=== PATIENT | female | born 1970 | race Caucasian/White ===

== ENCOUNTER 2018-08-12 05:32 | Inpatient (IN) | payer BC, OTHER ==
[2018-08-09 12:11] VITALS: BMI 39.0
[2018-08-12] MEDS ORDERED: PHENAZOPYRIDINE HCL 100 MG TABLET (FP) PO ONE (07:14)
--- NOTE | 2018-08-12 07:18 | HP ---
History & Physical Update - History History: No Change - Physical Physical: No Change - Assessment Assessment: No Change - Plan Plan: No Change
[2018-08-12] MEDS ORDERED: MIDAZOLAM HCL 2 MG/2 ML SINGLE DOSE VIAL ONE (07:54)
[2018-08-12] MEDS ORDERED: ROCURONIUM BROMIDE 50 MG/5 ML SYRINGE ONE ×2 (07:54→07:56)
[2018-08-12] MEDS ORDERED: ceFAZolin SODIUM 1 GM VIAL ONE (07:54)
[2018-08-12] MEDS ORDERED: LIDOCAINE HCL/PF 2% SDV 5ML VIAL ONE (07:54)
[2018-08-12] MEDS ORDERED: PROPOFOL 20 ML ONE ×3 (07:54)
[2018-08-12] MEDS ORDERED: fentaNYL CITRATE 250 MCG/5 ML VIAL ONE (07:54)
[2018-08-12] MEDS ORDERED: VECURONIUM BROMIDE 10 MG VIAL ONE ×2 (07:59→09:15)
[2018-08-12] MEDS ORDERED: BUPIVACAINE HCL/PF 0.5% (5MG/ML) 10 ML VIAL ONE (08:09)
--- NOTE | 2018-08-12 08:15 | HP ---
Satellite PMH - Chief Complaint Chief Complaint: Pelvic pain. Didelphus Uterus. Adenomyosis. Obesity. Leiomyomatous uterus History of Present Illness: 48 yo P2 s cesrean section with twins and left salpingetomy with c/o heavy bleeding, irregular bleeding and pain due to endometriosis and adenomyomatous didelphus uterus. Pt with Hx of depo provera x years with no relief and desires hysterectomy History Source: Patient Limitations to Obtaining History: No Limitations - Past Medical History Allergies/Adverse Reactions: Allergies Allergy/AdvReac Type Severity Reaction Status Date / Time Penicillins Allergy Severe Rash Verified 08/12/18 06:48 Reproductive: Yes: Endometriosis ...LMP Comment: depo in april (8-10 days in june) ...: No - Current Medications Current Medications: Home Medications Medication Instructions Recorded Medroxyprogesterone Acet 150 mg IM UTDICT 01/06/13 [Depo-Provera] Cetirizine HCl [Zyrtec -] 10 mg PO DAILY 08/09/18 Naproxen Sodium [Aleve] 220 mg PO PRN PRN 08/09/18 Lisinopril [Prinivil] 10 mg PO HS 08/12/18 Oxycodone HCl/Acetaminophen 1 - 2 tab PO Q6H #20 tab MDD 6 08/14/18 [Percocet 5-325 mg Tablet] Satellite Physical Exam - Physical Examination Vital Signs: Vital Signs Period Temp Pulse Resp BP Sys/Haque Pulse Ox Last 24 Hr 98.4 F 69 18 132/73 98 General Appearance: Well Nourished, Well Developed, Alert & Oriented x3, Obese Lung: Clear to auscultation Heart: Regular rate & rhythm Breasts: Soft, Non-Tender Abdomen: Soft, No tenderness Extremities: No edema, No tenderness/swelling Pelvic Exam: Within normal limits External Genitalia, Within normal limits Vagina, Within normal limits Cervix, Within normal limits [place], Other Uterus (didelphus) Neurological: Intact, Alert, Oriented Satellite Impression/Plan - Impression/Plan Impression: Adenomyosis. Leiomyomatous Uterus. abnormal uterine bleeding. Pelvic Pain. Menorrhagia. Metrorrhagia. Endometriosis Operative Procedure: RObotic Laparoscopic Hystereectomy. bilateral salpingectomy. possible laparotomy Date to be Performed: 08/12/18
[2018-08-12] MEDS ORDERED: ceFAZolin SODIUM 1 GM VIAL IVPB ONE (08:41)
[2018-08-12] MEDS ORDERED: DEXAMETHASONE SOD PHOSPHATE 4 MG/1 ML VIAL ONE (09:05)
[2018-08-12] MEDS ORDERED: GLYCOPYRROLATE 0.2 MG/1 ML VIAL ONE (10:19)
[2018-08-12] MEDS ORDERED: NEOSTIGMINE METHYLSULFATE 0.5 MG/ML - 10 ML MDV ONE (10:20)
[2018-08-12] MEDS ORDERED: BUPIVACAINE HCL/PF (5 MG/ML) 30 ML VIAL IJ ONE (10:40)
[2018-08-12] MEDS ORDERED: KETOROLAC TROMETHAMINE 30 MG/1 ML VIAL ONE (10:40)
[2018-08-12] MEDS ORDERED: ONDANSETRON 4 MG/2 ML VIAL IVPUSH PRN ×2 (11:00→11:01)
[2018-08-12] MEDS ORDERED: HYDROmorphone HCl 2 MG/ML VIAL IVPUSH PRN (11:00)
[2018-08-12] MEDS ORDERED: IBUPROFEN 800 MG/8 ML IJ IVPB PRN (11:01)
[2018-08-12] MEDS ORDERED: oxyCODONE HCL 5 MG TABLET PO PRN (11:01)
[2018-08-12] MEDS ORDERED: BISACODYL 5 MG TABLET.DR (FP) PO PRN (11:01)
[2018-08-12] MEDS ORDERED: DOCUSATE SODIUM 100 MG CAPSULE (FP) PO PRN (11:01)
--- NOTE | 2018-08-12 11:07 | OP ---
Operative Note - Note: Operative Date: 08/12/18 Pre-Operative Diagnosis: Fibroid uterus Operation: Robotic total hysterectomy and Right salpingectomy Post-Operative Diagnosis: Same as Pre-op Surgeon: Mehnaz Kessler Manager Sales And Marketing: Davie Ibanez Anesthesiologist/[employer] PROFESSIONAL: Miracle Gomes Anesthesia: General Specimens Removed: Uterus, Rt fallopian tube Estimated Blood Loss (mls): 25 Operative Report Dictated: Yes
--- NOTE | 2018-08-12 11:08 | SURG ---
Surgery Director Employee Safety And Health Note Director Employee Safety And Health: Davie Ibanez PA-C Date of Service: 08/12/18 Diagnosis: Fibroid uterus Procedure: robotic total hysterectomy and Rt salpingectomy I was present for the entirety of the operative procedure. For further detail, please refer to operative report. Visit type - Case Type Case Type: Scheduled - Emergency Emergency Visit: No - New patient This patient is new to me today: Yes Date on this admission: 08/12/18 - Critical Care Critical Care patient: No
[2018-08-12] MEDS ORDERED: HYDROmorphone *PCA* 10MG/50ML DISP.SYRIN PCA SCH ×2 (11:15→14:11)
[2018-08-12] MEDS: LACTATED RINGERS SOLUTION 1,000 ML IV SCH ×2 (11:30→18:25)
--- NOTE | 2018-08-12 14:41 | OP ---
DATE OF OPERATION: 08/12/2018 PREOPERATIVE DIAGNOSIS: Leiomyomatous uterus, pelvic pain, metromenorrhagia, menorrhagia. POSTOPERATIVE DIAGNOSIS: Leiomyomatous uterus, pelvic pain, metromenorrhagia, menorrhagia, endometriosis. OPERATION: Laparoscopic robotic total hysterectomy and right salpingectomy. SURGEON: Hugh Jeffers MD NEUROLOGIST: MOLINA Redmond ANESTHESIOLOGIST: Miracle Gomes MD ANESTHESIA: General. FINDINGS: Didelphys uterus with 2 cervixes noted and a right tube which was normal. Endometriosis seen in the cul-de-sac. PROCEDURE: The patient was taken to the operating room, placed in dorsal lithotomy position, prepped and draped in the usual sterile fashion. A time-out was performed in accordance with hospital regulation. Hollingsworth catheter was inserted into the bladder. Attention was then drawn to the umbilicus, where an 8-mm umbilical incision was made. Veress needle was inserted into the cavity. Approximately 3 to 4 L of CO2 was insufflated in the cavity. Veress needle was then removed and an 8-mm trocar was then inserted. Laparoscope and camera was attached. Two trocars were inserted on the right, 1 in the upper abdomen and 1 parallel to the umbilical incision, and 2 other incisions were parallel to the umbilical incision on the left, all inserted with 8-mm incisions after scalpel had been used and trocars were inserted under direct visualization. Trocars were placed correctly, and the da Sahil robot was then side docked to the patient. Trocars were then inserted and instruments then inserted. Tenaculum was placed in 4, Endo Maci were placed in 3, vessel sealer was placed in 1, and camera was in 2. After trocars had been placed, arms were secured and instruments placed. Attention was then drawn to the console, where tenaculum was then used to elevate the uterus. Uteroovarian ligament was identified and clamped and cut. Round ligament identified and clamped and cut. Uterine artery on the left side was clamped and cut. Vesicouterine reflection was then entered and bladder was bluntly dissected out of the operative field. The same procedure was then repeated on the right side. Ureters were identified in the beginning of the case and found to have peristalsis. The bladder was bluntly dissected out of the operative field. The same procedure was repeated on the right side. The uteroovarian ligament was identified and clamped and cut. Uterine artery was identified, clamped and cut. Cardinal ligament was identified and clamped and cut down to the level of the cervix. Vagina was then entered with the Endo Maci and cutting of the vagina was then done. Septum was seen in the vagina. Two cervixes were noted, and upon removal, patient had septum didelphys vagina as well as septum that split the cervixes. Both uteruses and cervixes were removed. Tube was bilaterally grasped on the right and coagulation and cutting was then performed and a right salpingectomy was then done and removal of the tube. V-sam suture was then entered into the abdomen and robot was then used to close the vagina in a continuous fashion. Ureters were identified and found to have peristalsis and the needle was then removed out of the trocar. Hemostasis had been achieved. No bleeding was noted. All instruments were then removed. Incisions were then closed using 4-0 Biosyn in subcuticular fashion. Wound was washed and dressed. The patient tolerated procedure well. Estimated blood loss was 25 mL. HUGH JEFFERS M.D. [id number]
[2018-08-12 17:40] LABS: HEMATOCRIT 35.5 % (32.4-45.2); HEMOGLOBIN 12.5 GM/dL (10.7-15.3); MCHC 35.2 g/dl (32.0-36.0); MEAN PLT VOLUME 7.2 fl (7.5-11.1); PLATELET COUNT 155 K/MM3 (134-434); RDW 12.9 % (11.6-15.6); WHITE BLOOD COUNT 5.6 K/mm3 (4.0-10.0)
[2018-08-12] MEDS ORDERED: ceFAZolin 2 GRAM PREMIX BAG IVPB SCH (18:00)
[2018-08-12 18:09] LABS: BLOOD UREA NITROGEN 20.8 mg/dL (7-18); CALCIUM 8.4 mg/dL (8.5-10.1); CREATININE 1.2 mg/dL (0.55-1.3); POTASSIUM 4.6 mmol/L (3.5-5.1)
[2018-08-12] MEDS: CEFAZOLIN 2 GM/D5W 2 GM/50 ML ML IVPB SCH (18:25)
[2018-08-13] MEDS: CEFAZOLIN 2 GM/D5W 2 GM/50 ML ML IVPB SCH ×2 (01:49→09:21)
[2018-08-13 07:44] LABS: HEMATOCRIT 32.2 % (32.4-45.2); HEMOGLOBIN 11.4 GM/dL (10.7-15.3); MCH 32.2 pg (25.7-33.7); MCHC 35.5 g/dl (32.0-36.0); MEAN CELL VOLUME 90.7 fl (80-96); MEAN PLT VOLUME 7.6 fl (7.5-11.1); PLATELET COUNT 144 K/MM3 (134-434); RBC 3.55 M/mm3 (3.60-5.2); RDW 12.6 % (11.6-15.6); WHITE BLOOD COUNT 5.1 K/mm3 (4.0-10.0)
--- NOTE | 2018-08-13 08:07 | SPA.POSTOP ---
- POST-OP NOTE POD #1 s/p Robotic hysterectomy No acute events since surgical procedure per RN notes. Patient resting comfortably. Pt complaining of some mild abd pain. Denies n/v/f/c, CP or SOB. Last Vital Signs Temp Pulse Resp BP Pulse Ox 97.8 F 70 18 133/74 99 08/13/18 06:00 08/13/18 06:00 08/13/18 06:00 08/13/18 06:00 08/12/18 21:00 Physical Exam General: No acute distress. Pulm: breathing comfortably Cor: Regular rhythm Abd: Soft. Mild lower abd tenderness, No distention, incisions clean with no erythema or discharge. LE: Soft, non-tender bilat. SCD's bilat. Problem List - Problems (1) S/P hysterectomy Assessment/Plan: Plan -pt appears to be doing well, will reevaluate pt later today for hopeful discharge this afternoon -OOB/ambulate -trial of void -pain control, DC VOCATIONAL CASE MANAGER -adv to regular diet Code(s): Z90.710 - ACQUIRED ABSENCE OF BOTH CERVIX AND UTERUS
[2018-08-13 08:12] LABS: BLOOD UREA NITROGEN 18.4 mg/dL (7-18); CALCIUM 8.5 mg/dL (8.5-10.1); POTASSIUM 4.1 mmol/L (3.5-5.1)
[2018-08-13] MEDS: ENOXAPARIN NA (PORCINE) 40 MG/0.4 ML DISP.SYRIN SQ SCH (09:20)
[2018-08-13] MEDS: LORATADINE 10 MG TABLET PO SCH (09:20)
[2018-08-13] MEDS ORDERED: ENOXAPARIN NA (PORCINE) 40 MG/0.4 ML DISP.SYRIN SQ SCH (10:00)
[2018-08-13] MEDS ORDERED: PCA PUMP KEY 1 EACH EACH ONE (10:38)
[2018-08-13] MEDS: oxyCODONE HCL 5 MG TABLET PO PRN ×2 (10:51→22:07)
[2018-08-13] MEDS: ACETAMINOPHEN 325 MG TABLET (FP) PO PRN ×2 (16:56→22:06)
[2018-08-13] MEDS ORDERED: LISINOPRIL 10 MG TABLET (FP) PO SCH (17:00)
[2018-08-13] MEDS: SIMETHICONE 80 MG TAB.CHEW (FP) PO PRN (22:06)
[2018-08-13 23:28] VITALS: TEMP 98.1
--- NOTE | 2018-08-14 07:07 | DS ---
Physical Exam-OFFICE SUPERVISOR Vital Signs: Vital Signs Temperature 98.1 F 08/13/18 20:00 Pulse Rate 71 08/13/18 20:00 Respiratory Rate 18 08/13/18 20:00 Blood Pressure 131/63 08/13/18 20:00 O2 Sat by Pulse Oximetry (%) 97 08/13/18 21:00 Constitutional: Yes: Well Nourished, No Distress Gastrointestinal: Yes: WNL, Soft, Abdomen, Obese Wound/Incision: Yes: Clean/Dry, Steri Strips, Open to air Neurological: Yes: WNL, Alert, Oriented Labs: CBC, BMP 08/13/18 06:51 08/13/18 06:51 Discharge Summary Reason For Visit: LEIOMYOMA OF UTERUS, UNSPECIFIED Current Active Problems S/P hysterectomy (Acute) Procedures: Principal: Laparscopic Total Hysterectomy. right salpingectomy Condition: Stable - Instructions Diet, Activity, Other Instructions: Dr. Mehnaz Kessler Label Remover discharge instructions Physical activity Resume your normal everyday activity as tolerated no heavy lifting or exercise until seen by your surgeon. You may walk unlimited brendon of and climb stairs. You may resume driving the car when you feel safe and comfortable behind the wheel. No sexual activity as instructed by Dr. Kessler. Wound care If you have a bandage, leave it on, and keep dry for 48-72 hours. After that time discard the outer bandage. If they are tapes on the skin under the out of bandage leave them in place. They will peel off in the next 7 to 10 days. Do Not Peel them off. You may shower the day after surgery. If there are tapes present on the skin, you may shower over them. Diet There are no dietary restrictions. Eat healthy, high-fiber foods. Drink 6 to 8 glasses of liquid each day. This will assist in keeping your bowels are regular. Pain management You may take Tylenol or acetaminophen or Ibuprofen (for example, Motrin, Advil etc.) from my pain prescription medication is ordered should be taken as prescribed for moderate to severe pain. Call Dr. Kessler for any of the following: Severe pain not relieved by medication Fever of 101 or higher Excessive bleeding or drainage on dressing Inability to urinate Call the office at [phone] for an appointment in seven days. Disposition: HOME - Home Medications Comprehensive Discharge Medication List: Ambulatory Orders Medroxyprogesterone Acet [Depo-Provera] 150 mg IM UTDICT 01/06/13 Cetirizine HCl [Zyrtec -] 10 mg PO DAILY 08/09/18 Naproxen Sodium [Aleve] 220 mg PO PRN PRN 08/09/18 Lisinopril [Prinivil] 10 mg PO HS 08/12/18 Oxycodone HCl/Acetaminophen [Percocet 5-325 mg Tablet] 1 - 2 tab PO Q6H #20 tab MDD 6 08/14/18
[2018-08-14] MEDS: oxyCODONE HCL 5 MG TABLET PO PRN ×2 (08:40→12:56)
[2018-08-14] MEDS: ACETAMINOPHEN 325 MG TABLET (FP) PO PRN ×2 (08:41→12:56)
[2018-08-14 09:07] VITALS: BP 131/67; PULSE 76
[2018-08-14] MEDS: LORATADINE 10 MG TABLET PO SCH (09:19)
[2018-08-14] MEDS: ENOXAPARIN NA (PORCINE) 40 MG/0.4 ML DISP.SYRIN SQ SCH (09:19)
--- NOTE | 2018-08-14 11:12 | PN ---
Progress Note (short form) - Note Progress Note: Post op day#1.S/p Laproscopic,robotic hysterectomy with R salpingectomy under GA uneventful.Patient stable and does not c/o pain.INDUSTRIAL HYGENIST was Dc yesterday.No any anesthesia related problem.Patient Dc from the anesthesia care.
[2018-08-14] MEDS: SIMETHICONE 80 MG TAB.CHEW (FP) PO PRN (12:56)
--- NOTE | 2018-08-14 17:51 | PATH ---
Surgical Pathology Report Patient Name: ANNMARIE LOZOYA [facility]. Rec. #: [id number] /Age/Gender: 1970 (Age: 48) / F Account: [id number] Location: [facility] OBS/MEDICAL DONATION PROFESSIONAL Taken: 08/12/2018 Received: 08/12/2018 Reported: 08/14/2018 Physicians: Mehnaz Kessler M.D. Specimen(s) Received A: UTERUS AND CERVIX B: RIGHT FALLOPIAN TUBE Clinical History Leiomyoma of uterus Final Diagnosis A. "DIDELPHYS" UTERUS AND CERVIX, ROBOTIC LAPAROSCOPIC TOTAL HYSTERECTOMY: 100 G UTERUS. LEIOMYOMA(TA), SUBSEROSAL AND INTRAMURAL. MYOMETRIUM WITH ADENOMYOSIS. ENDOMETRIAL POLYP. INACTIVE ENDOMETRIUM. CERVIX WITHOUT SIGNIFICANT PATHOLOGIC FINDINGS. B. FALLOPIAN TUBE, RIGHT, SALPINGECTOMY: FALLOPIAN TUBE WITH ENDOSALPINGOSIS (INCLUDING FIMBRIATED END AND FULL LUMINAL PORTION). Electronically Signed Chely Shelley M.D. Gross Description A. Received in formalin labeled "didelphys uterus and cervix," is a 100 g uterus with an attached cervix and no attached adnexa. The specimen measures 8.5 cm from superior to inferior, 5.0 centimeters from left to right and 4.9 cm from anterior to posterior. The serosa is white-fiore with focal defects and focal bulging subserosal nodules. The attached cervix measures 3 cm in length and averages 2 cm in diameter. The ectocervix is white-pink, smooth and glistening. The endocervix is unremarkable. The endometrial cavity is mildly distorted by leiomyomas. The cavity measures 4.0 x 3.2 cm and is heart-shaped. The endometrium displays a 2.0 x 2.0 x 0.3 cm pink-white, polypoid lesion attached to the posterior aspect. The remaining endometrium is white-red and averages 0.1 cm in thickness. The myometrium displays multiple intramural nodules, measuring up to 3.0 cm in greatest dimension. The cut surface of the nodules is white with whorled architecture. The myometrium is white and firm with whorled architecture and measures up to 3 cm in thickness. Associate Director Of Biostatistics sections are submitted in 9 cassettes as follows: 1-anterior cervix; 2-posterior cervix; 7-4-ermwerpj endomyometrium; 5-posterior endometrium with polyp; 6-additional posterior endomyometrium; 7-subserosal nodules; 2-5-gunrnbrsxh nodules. B. Received in formalin labeled "right fallopian tube," is a 4.5 cm in length fimbriated fallopian tube. The outer surface is white mccoy and smooth. Sectioning reveals an unremarkable lumen. Associate Director Of Biostatistics sections are submitted in 2 cassettes as follows: 1-fimbria; 2-cross sections of fallopian tube. 08/13/2018 [facility]08/13/2018
== END 2018-08-14 13:00 | disposition home or self-care (01) | DRG 742 ==
LOC: JASUSAT 05:32 → EDSTATUS 08:00 → J3W 13:33 → JASUSAT 13:34 → J3W 13:34
PROVIDERS: ADMIT Obstetrics & Gynecology; ATTEND Obstetrics & Gynecology
PROC: 8E0W8CZ Robotic Assisted Procedure of Trunk Region, Via Natural or Artificial Opening Endoscopic (ICD-10-PCS; 2018-08-12)
PROC: 0UT94ZZ Resection of Uterus, Percutaneous Endoscopic Approach (ICD-10-PCS; principal; 2018-08-12 08:00)
PROC: 0UB74ZZ Excision of Bilateral Fallopian Tubes, Percutaneous Endoscopic Approach (ICD-10-PCS; 2018-08-12 08:00)
DX: D25.9 Leiomyoma of uterus, unspecified (principal); Z68.41 Body mass index [BMI] 40.0-44.9, adult; N80.0 Endometriosis of uterus; E66.9 Obesity, unspecified; Q51.28 Other and unspecified doubling of uterus
CPT/HCPCS: 36415; 80048; 85027; 88302-TC; 88307-TC; 94760